=== PATIENT | male | born 1935 | race Caucasian/White ===

== ENCOUNTER → 2017-01-15 | Outpatient (CLI) | payer MEDICARE, OTHER ==
[~2017-01-15] MED LIST: ASPIRIN 81MG TA81 MG PO; ASPIRIN EC81 MG PO; CLARINEX5 MG PO; CLOPIDOGREL75 M1 PO; HUMULIN 70100 UNITS/ SC; HUMULIN N100 UNITS/; HYDROCHLOROTHIA25 M1 PO; LIPITOR40 MG PO; LISINOPRIL20 MG PO; MELOXICAM15 MG PO; METOPROLOL SUC100 M1 PO; METOPROLOL SUCC50 M1 PO; METOPROLOL TAR100 MG PO; NEXIUM40 MG PO
[2017-01-15 10:47] LABS: HEMOGLOBIN 13.8 g/dL (14.1-18.0); LYMPH # 2.3 K/mm3 (0.7-4.5); LYMPH % 36.2 % (10-50)
[2017-01-15 11:21] LABS: BUN 22 mg/dL (7-18)
[2017-01-15 11:23] LABS: GFR (ESTIMATED) 49 ML/MIN (>60)
== END ==
LOC: LAB 10:22
PROVIDERS: Internal Medicine
DX: C18.9 Malignant neoplasm of colon, unspecified (principal)

== ENCOUNTER → 2017-03-30 | Outpatient (CLI) | payer MEDICARE, OTHER ==
[2017-03-30 18:41] LABS: HEMOGLOBIN 14.4 g/dL (14.1-18.0); LYMPH # 2.7 K/mm3 (0.7-4.5); LYMPH % 39.8 % (10-50)
[2017-03-30 18:51] LABS: URINE BILIRUBIN - DIPSTICK NEGATIVE (NEG); URINE BLOOD NEGATIVE (NEG)
[2017-03-30 20:37] LABS: URINE SQUAMOUS CELLS OCC #/hpf (OCC)
[2017-03-30 21:22] LABS: BUN 27 mg/dL (7-18)
[2017-03-30 22:58] LABS: GFR (ESTIMATED) 34 ML/MIN (>60)
== END ==
LOC: LAB 17:32
PROVIDERS: Internal Medicine Nephrology
DX: N18.3 Chronic kidney disease, stage 3 (moderate) (principal)

== ENCOUNTER → 2017-04-21 | Outpatient (CLI) | payer MEDICARE, OTHER ==
[2017-04-21 12:33] LABS: HEMOGLOBIN 13.5 g/dL (14.1-18.0); LYMPH # 2.1 K/mm3 (0.7-4.5); LYMPH % 37.7 % (10-50)
[2017-04-21 13:55] LABS: BUN 24 mg/dL (7-18)
[2017-04-21 14:20] LABS: GFR (ESTIMATED) 45 ML/MIN (>60)
== END ==
LOC: LAB 12:18
PROVIDERS: Internal Medicine
DX: C18.9 Malignant neoplasm of colon, unspecified (principal)

== ENCOUNTER → 2017-04-23 | Outpatient (CLI) | payer MEDICARE, OTHER ==
--- NOTE | 2017-04-24 11:36 | RADIOLOGY REPORT PS360 ---
CT CHEST W/O CONTRAST HISTORY: Follow-up: Cancer, evaluate for metastatic disease COLON CANCER ORDERING PHYSICIAN: Javon Roque MD PATIENT AGE: 81 years TECHNIQUE: Axial images obtained without contrast... Axial, sagittal, and coronal reformatted images are generated and reviewed. COMPARISON: 07/17/2016 FINDINGS: There is been a prior median sternotomy with CABG. No mediastinal or hilar mass is evident. No pericardial effusion. Mild gynecomastia noted. No suspicious pulmonary nodules, infiltrates, or effusions evident. Calcified granulomas are present along with mild fibrotic changes. No aneurysm. No acute bony anomalies. IMPRESSION: Stable CT appearance of the chest with no convincing evidence of metastatic disease
--- NOTE | 2017-04-24 11:50 | RADIOLOGY REPORT PS360 ---
CT ABD PELVIS W/O CONTRAST CLINICAL INDICATION: Follow-up: Cancer COLON CANCER ORDERING PHYSICIAN: Javon Roque MD PATIENT AGE: 81 years COMPARISON: 07/17/2016 TECHNIQUE: Axial images obtained with sagittal and coronal reformats. PROCEDURE: Oral Contrast: None IV Contrast: None . FINDINGS: There is a 7 mm isodensity in the hepatic dome centrally. This appears somewhat more prominent but may be technical compared to the previous studies. Continued follow-up recommended. The spleen, adrenal glands, and pancreas are unremarkable. There is been a prior right nephrectomy. There is compensatory hypertrophy of the left kidney. There is diverticulosis of the colon. Suture line is present in the splenic flexure as before. No abdominal or pelvic mass evident. No adenopathy. No abnormal fluid collection or focal inflammatory change. There is spondylosis of the lumbar spine. IMPRESSION: 1. 7 mm hypodensity of the right hepatic lobe. This appears somewhat more prominent but may be related to the technique. It has been present dating back to 05/28/2015 is probably benign. Continued follow-up recommended. 2. No convincing evidence of metastatic disease. 3. Prior right nephrectomy
== END ==
LOC: RAD 09:00
DX: C18.9 Malignant neoplasm of colon, unspecified (principal)

== ENCOUNTER → 2017-06-03 | Outpatient (CLI) | payer MEDICARE, OTHER ==
--- NOTE | 2017-06-04 16:29 | RADIOLOGY REPORT PS360 ---
PROCEDURE: 2-D M-mode and color Doppler study INDICATIONS FOR THE TEST: Chest pain COPD Heart Murmur+ Tobacco Smoking Palpitations Fatigue+ Syncope Edema+ Hypertension+Diabetes Mellitus+ Rheumatic Fever SOB MEJIAS+Obesity Hyperlipidemia+ Family History HD Additional History CAD, hx of Colon cancer in remission, CABG x 5, Lt leg numbness PATIENT INFORMATION HEIGHT: 74 WEIGHT: 245 GENDER: Male B/P: 159/76 2-D/M-MODE INTERPRETATION: 2-D MEASUREMENTS OBSERVED VALUES IN CMS Right Ventricular Dimension (RVDd) 2.6 Interventricular Septum (Thickness)(IVsd) 1.2 Left Ventricular Internal Dimensions(LVIDd) 4.7 Left Ventricular Posterior Wall (Thickness)(LVPWd) 1.1 Aortic Root 3.6 Aortic Cusp Separation 2.0 Left Atrial Dimensions (LAD) 4.9 2D 1. Left atrium is moderately enlarged, left ventricle is normal size, there is mild concentric left ventricular hypertrophy, visually estimated ejection fraction 55% with no obvious regional wall motion abnormality, endocardial surfaces are somewhat poorly visualized. 2. The right atrium and right ventricle are normal size and contractility. 3. The aortic valve is thickened and calcified with mild restriction the leaflet mobility. 4. The mitral and tricuspid valve leaflets are minimally thickened. 5. Pulmonic valve is poorly visualized. 6. No significant pericardial effusion noted. DOPPLER INTERROGATION: 1. The maximum aortic out flow velocity recorded study 2.2 m/s resulting in a mean gradient across valve of 19 mmHg represents mild aortic stenosis, there is no aortic insufficiency present. 2. The mitral inflow velocity within normal range, there is no mitral stenosis, grade 2 diastolic dysfunction seen with tissue Doppler evidence of raised left atrial pressure, there is moderate mitral regurgitation present. 3. There is mild tricuspid regurgitation present, tricuspid regurgitant jet velocity is insufficient for calculation of the right ventricular systolic pressure. 4. No significant pericardial effusion noted. CONCLUSION: 1. Moderately enlarged left atrium, normal left ventricular size, mild concentric left ventricular hypertrophy present, visually estimated ejection fraction 55% with no obvious regional wall motion abnormality, grade 2 diastolic dysfunction seen with tissue Doppler evidence of raised left atrial pressure. 2. Mild aortic stenosis, there is no aortic insufficiency. 3. Mild mitral and tricuspid regurgitation. 4. No significant pericardial effusion noted.
== END ==
LOC: RAD 13:55
DX: Q25.3 Supravalvular aortic stenosis (principal)